=== PATIENT | male | born 1940 | race Caucasian/White ===

== ENCOUNTER → 2017-09-12 | Outpatient (CLI) | payer MEDICARE ==
--- NOTE | 2017-09-09 08:34 | MH ---
cc: REGI MYERS DATE OF ADMISSION 09/12/2017 ADMISSION DIAGNOSIS Cataract left eye HISTORY OF PRESENT ILLNESS This 77-year-old white male is coming through [facility] for the purpose of a lens extraction of the left eye with intraocular lens implant under local anesthesia. He has noted decreasing visual acuity interfering with his daily activities, as well as glare from headlights at night and including trouble seeing cards across the table when playing and has elected to have the above procedure. His best corrected visual acuity in room light is 20/40 -2 in the right eye at 20/50 -1 in the left eye. He notes he sees better when he turns his head rather than looking straight ahead. PAST MEDICAL HISTORY The patient has a history of: 1. Hypertension 2. He had a myocardial infarction 25 years ago. PAST SURGICAL HISTORY His surgical history includes: 1. Right knee replacement 2. C3-C8 fusion 3. L3-L4, L4 laminectomy 4. Teeth extractions 5. Umbilical hernia 6. Said he had some type of "callous removed" with a laser in his right eye 35-40 years ago which may mean a pterygium was removed. MEDICATIONS Daily medications include: 1. 81 mg of Aspirin 2. Fish oil 3. Vitamin D3 4. Tylenol 5. Allopurinol 6. Amlodipine 7. Atorvastatin 8. Metoprolol 9. Hydrochlorothiazide 10. Vitamin B12 11. Lisinopril ALLERGIES He has no known allergies. SOCIAL HISTORY He was a one-pack per day smoker for 30 years in the past, but does not smoke now. He drinks one to two glasses of wine per week. FAMILY HISTORY The patient has a maternal grandmother with cataract and other family members with macular degeneration. REVIEW OF SYSTEMS HEAD: Patient denies severe headaches, dizziness or recent head injury. EARS: Patient denies hearing loss, ear pain, discharge or ringing in the ears. NOSE: Patient denies nasal discharge, obstruction or frequent colds. MOUTH AND THROAT: Patient denies soreness of the mouth or tongue, bleeding gums, trouble swallowing, changes in voice or sore throat. NECK: The patient states he has had the fusion from C3-C6 pinched nerves. CARDIOPULMONARY SYSTEM: Denies shortness of breath, orthopnea, chronic cough, sputum production, hemoptysis, chest pain, wheezing, or light-headedness. GI SYSTEM: Patient denies poor appetite, nausea, vomiting, abdominal pain, ulcers, hemorrhoids or change in bowel habits. SYSTEM: He gets up at night several times to urinate. The patient denies dysuria, change in urine color. NERVOUS SYSTEM: Patient denies convulsions, vertigo, stroke, numbness or weakness. PHYSICAL EXAMINATION VITAL SIGNS: Blood pressure is 134/80, pulse 82, respirations 20. HEAD: Normocephalic, atraumatic. NOSE: Without rhinorrhea. THROAT: Clear. NECK: Supple. CHEST: Clear. HEART: Irregular rhythm. ABDOMEN: Without tenderness. EXTREMITIES: With ankle edema. NEUROLOGIC: Within normal limits. MENTAL STATUS: Within normal limits. EYE EXAMINATION The patient's best corrected visual acuity in room light is 20/40 -2 in the right eye and 20/50 -1 in the left. He states he can see a little better when he turns his head slightly. Visual sung are full to confrontation testing. Extraocular muscle exam reveals full versions with orthophoria at distance and near. Pupils are 3 mm equal, round, reactive to light without afferent defect. Anterior segment examination reveals dermatochalasis of the eyelid skin. There are occasional guttae on the cornual endothelium and there is basement membrane corneal dystrophy greater in the left eye than the right. There are nuclear sclerotic and cortical cataract changes bilaterally, greater in the left. Intraocular pressure is 18 in the right eye and 19 in the left by applanation tonometry. Dilated fundus exam revealed sharp disks with cup-to-disk ratio 0.3 bilaterally. There are a few fine drusen in the right macula with the left macula appearing to be within normal limits. The background is within normal limits. IMPRESSION 1. Bilateral cataracts left eye greater than right. 2. 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 3. Dermatochalasis PLAN The plan is lens extraction of the left eye with intraocular lens implant under local anesthesia. Iris retractors will be used if the pupil does not dilate well. The patient has been cleared medically. He has been counseled as to the risks, benefits and alternatives and elected to proceed. I feel that cataract surgery will improve the quality of life and activities of daily living in this patient. MD RAE Hardy/SAMI /11:30 AM /8:15 AM
[~2017-09-12] VITALS: Ht 170.2 cm; Wt 101.5 kg
[~2017-09-12] MED LIST: ACETYLCHOLINE CHL OPHT SOLN 1:100 2 ML VIAL ONE; ALLO100T PO; AMLO2.5T PO; AMLO5TAB2 PO; ASPI-516 PO; ATOR10TA15 PO; CHLORHEXIDINE GLUCONATE 2 % 1 PACK (2 CLOTHS) TOPICAL PRN; CHOL10008 PO; EPINEPHrine HCL PF/SF (1:1000) 1 MG/ML AMP I-OCULAR ONE; FISH500C; FISH500C PO; HYALURONIDASE/LIDOCAINE/BUPIVACAINE 5 ML SYR LEFT EYE ONE; HYALURONIDASE/LIDOCAINE/BUPIVACAINE 5 ML SYR LEFT EYE PRN; HYDR12.57 PO; HYDR25TA5 PO; INSULIN HUMAN REGULAR 1,000 UNITS/10 ML VIAL SQ PRN; LACTATED RINGER'S 1000 ML IV PRN; LISI10TA3 PO; LISI2.5T3 PO; METO-426 PO; METO25TA3 PO; METOPROLOL TARTRATE 25 MG TAB PO PRN; PILOCARPINE HCL 2% OPHT SOLN 15 ML BTL ONE; POVIDONE IODINE 5% (ANTISEPSIS KIT) 4 APPLICATIONS EACH NARE PRN; PROPARACAINE HCL 0.5% OPHT SOLN 15 ML BTL LEFT EYE ONE; PROPOFOL 200 MG/20 ML AMP ONE; SODIUM CHLORID 0.9% 500 ML IV PRN; TOBRAMYCIN/DEXAMETHASONE OPTH OINT 3.5 GM TUBE ONE; TYLE325T PO; VISCOAT OPHT IRRIG SOLN 0.75 ML SYRINGE ONE; VITAMIN B12
[2017-09-12 08:22] VITALS: PULSE 69
[2017-09-12] MEDS: DICLOFENAC SOD 0.1% OPHT SOLN 2.5 ML BTL LEFT EYE SCH ×4 (08:30→08:39)
[2017-09-12] MEDS: PHENYLEPHRINE HCL 2.5% OPTH SOLN 2 ML BTL LEFT EYE SCH ×4 (08:30→08:39)
[2017-09-12] MEDS: TROPICAMIDE 1% OPHT SOLN 15 ML BTL LEFT EYE SCH ×4 (08:30→08:39)
[2017-09-12] MEDS: GATIFLOXACIN 0.5% OPHT SOLN 2.5 ML BTL LEFT EYE SCH ×4 (08:30→08:39)
[2017-09-12] MEDS: CYCLOPENTOLATE HCL 1% OPHT SOLN 2 ML BTL LEFT EYE SCH ×4 (08:30→08:39)
[2017-09-12 09:05] VITALS: PULSE 85
[2017-09-12 10:47] VITALS: TEMP 97
--- NOTE | 2017-09-12 11:15 | MP ---
cc: LOUISRICH Corrected Copy: 09/14/17 DATE OF SURGERY 09/12/2017 PREOPERATIVE DIAGNOSIS Cataract, left eye. POSTOPERATIVE DIAGNOSIS Cataract, left eye. OPERATION Extracapsular cataract extraction with posterior chamber intraocular lens implant by phacoemulsification, left eye. SURGEON Rich Hoyos M.D. ANESTHESIA Local. COMPLICATIONS None. INDICATIONS See history and physical previously dictated. OPERATIVE PROCEDURE The patient had adequate retrobulbar and eyelid blocks administered in the holding area and was brought to the operating room. The left eye was prepped and draped in the usual sterile ophthalmic manner. A lid speculum was inserted in the left eye. A 4-0 silk bridle suture was placed through the conjunctiva near the superior rectus muscle and it was tacked to the drape. A fornix-based conjunctival flap was prepared spanning approximately 5 mm in width. Hemostasis was obtained with wet-field cautery. A 3.5 mm groove was made 1 mm from the limbus and dissected up to the limbus in the form of a scleral pocket incision. A stab incision was then made at the 2 o'clock position. Viscoelastic was injected into the anterior chamber. The anterior chamber was entered with a 2.75 mm keratome through the scleral pocket incision. A 360 degree continuous curvilinear capsulorrhexis was then performed. Hydrodissection was utilized to divide the nucleus into inner and outer components and to separate the cortex from the capsule. Phacoemulsification was then utilized to remove the nucleus. The outer nuclear layer was removed with irrigation and aspiration and short bursts of ultrasound as necessary. The cortex was removed with the irrigation-aspiration handpiece. The posterior capsule was polished with the capsule polisher. Viscoelastic was injected into the capsular bag. The intraocular lens was inspected and found to be in good condition. The lens utilized was an Solomon model SA60AT with a power of +21 diopters. The lens was inserted into the capsular bag. The viscoelastic in the anterior chamber was then removed with the irrigation-aspiration handpiece. Viscoelastic was also removed from beneath the intraocular lens. The anterior chamber was filled with Miochol-E through the stab incision and pressurized. The wound was checked for leaks at this pressure and normalized pressure, and there were none. The 4-0 bridle suture was removed. The conjunctival flap was brought down over the wound and secured with cautery. Pilocarpine 2% eye drops were instilled topically. The lid speculum was removed. TobraDex ophthalmic ointment was applied. The eye was double patched and shielded. The patient tolerated the procedure well and left the Operating Room in satisfactory condition. MD RAE Hardy/KAREN /10:48 AM /3:08 PM
[2017-09-12 11:17] VITALS: BP 137/80; PULSE 61; RESP 16; O2SAT 97
== END ==
LOC: PHSDC 07:57
PROVIDERS: ATTEND Ophthalmology
DX: H25.812 Combined forms of age-related cataract, left eye (principal); H18.50 Unspecified hereditary corneal dystrophies; H02.839 Dermatochalasis of unspecified eye, unspecified eyelid; I10 Essential (primary) hypertension; I25.2 Old myocardial infarction; Z98.1 Arthrodesis status; Z96.651 Presence of right artificial knee joint; Z79.82 Long term (current) use of aspirin
CPT/HCPCS: 00142; 66984; J0171; J7040; V2632

== ENCOUNTER → 2017-11-07 | Day surgery (SDC) | payer MEDICARE ==
[~2017-11-07] VITALS: Ht 168.9 cm; Wt 101.4 kg
[~2017-11-07] MED LIST changes: -AMLO2.5T PO; -CHOL10008 PO; -FISH500C; -HYALURONIDASE/LIDOCAINE/BUPIVACAINE 5 ML SYR LEFT EYE ONE; -HYALURONIDASE/LIDOCAINE/BUPIVACAINE 5 ML SYR LEFT EYE PRN; +HYALURONIDASE/LIDOCAINE/BUPIVACAINE 5 ML SYR RIGHT EYE ONE; -HYDR12.57 PO; -INSULIN HUMAN REGULAR 1,000 UNITS/10 ML VIAL SQ PRN; -LISI2.5T3 PO; -METO25TA3 PO; -PROPARACAINE HCL 0.5% OPHT SOLN 15 ML BTL LEFT EYE ONE; +PROPARACAINE HCL 0.5% OPHT SOLN 15 ML BTL RIGHT EYE ONE; +TETRACAINE 0.5% OPTH SOLN 4 ML BTL ONE; +VITA100T65 PO; -VITAMIN B12; +acetaZOLAMIDE SEQUELS 500 MG SUSTAINED RELEASE CAP ONE
[2017-11-07 07:45] VITALS: PULSE 92
[2017-11-07] MEDS: DICLOFENAC SOD 0.1% OPHT SOLN 2.5 ML BTL RIGHT EYE SCH ×4 (07:45→07:54)
[2017-11-07] MEDS: GATIFLOXACIN 0.5% OPHT SOLN 2.5 ML BTL RIGHT EYE SCH ×4 (07:45→07:54)
[2017-11-07] MEDS: PHENYLEPHRINE HCL 2.5% OPTH SOLN 2 ML BTL RIGHT EYE SCH ×4 (07:45→07:54)
[2017-11-07] MEDS: TROPICAMIDE 1% OPHT SOLN 15 ML BTL RIGHT EYE SCH ×4 (07:45→07:54)
[2017-11-07] MEDS: CYCLOPENTOLATE HCL 1% OPHT SOLN 2 ML BTL RIGHT EYE SCH ×4 (07:45→07:54)
[2017-11-07 08:10] VITALS: PULSE 87
[2017-11-07 10:46] VITALS: BP 145/75; PULSE 73; RESP 16; TEMP 98; O2SAT 98
--- NOTE | 2017-11-07 11:53 | MP ---
cc: Rich Hoyos MD DATE OF OPERATION: 11/07/2017 PREOPERATIVE DIAGNOSIS: Cataract right eye. POSTOPERATIVE DIAGNOSIS: Cataract right eye. OPERATION: Extracapsular cataract extraction with posterior chamber intraocular lens implant by phacoemulsification, right eye. SURGEON: Rich Hoyos M.D. ANESTHESIA: Local. COMPLICATIONS: None. INDICATIONS: See history and physical previously dictated. OPERATIVE PROCEDURE: The patient had adequate retrobulbar and eyelid blocks administered in the holding area and was brought to the operating room. The right eye was prepped and draped in the usual sterile ophthalmic manner. A lid speculum was inserted in the right eye. A 4-0 silk bridle suture was placed through the conjunctiva near the superior rectus muscle and it was tagged to the drape. A fornix-based conjunctival flap was prepared spanning approximately 5 mm in width. Hemostasis was obtained with wet-field cautery. A 3.5 mm groove was made 1 mm from the limbus and dissected up to the limbus in the form of a scleral pocket incision. A stab incision was then made at the 2 o'clock position. Viscoelastic was injected into the anterior chamber. The anterior chamber was entered with a 2.75 mm keratome through the scleral pocket incision. A 360 degree continuous curvilinear capsulorrhexis was then performed. Hydrodissection was utilized to divide the nucleus into inner and outer components and to separate the cortex from the capsule. Phacoemulsification was then utilized to remove the nucleus. The outer nuclear layer was removed with irrigation and aspiration and short bursts of ultrasound as necessary. The cortex was removed with the irrigation/aspiration handpiece. The posterior capsule was polished with the capsule polisher. Viscoelastic was injected into the capsular bag. The intraocular lens was inspected and found to be in good condition. The lens utilized was an Solomon, model number SA60AT with a power of +21 diopters. The lens was inserted into the capsular bag. The viscoelastic in the anterior chamber was then removed with the irrigation-aspiration handpiece. Viscoelastic was also removed from beneath the intraocular lens. The anterior chamber was filled with Miochol-E through the stab incision and pressurized. The wound was checked for leaks at this pressure and normalized pressure and there were none. The 4-0 bridle suture was removed. The conjunctival flap was brought down over the wound and secured with cautery. Pilocarpine 2% eye drops were instilled topically. The lid speculum was removed. TobraDex ophthalmic ointment was applied. The eye was double patched and shielded. The patient tolerated the procedure well and left the Operating Room in satisfactory condition. MD RAE Hardy/NAPOLEON , 10:09 AM , 10:26 AM
== END | disposition home or self-care (01) ==
LOC: PHSDC 06:50
PROVIDERS: ATTEND Ophthalmology
DX: H26.9 Unspecified cataract (principal)
CPT/HCPCS: 00142; 66984; J0171; J7040; V2632